=== PATIENT | male | born 1930 | race Caucasian/White ===

== ENCOUNTER 2019-06-23 12:01 | Observation (INO) | payer MEDICARE ==
[~2019-06-23] VITALS: Ht 172.7 cm; Wt 77.4 kg
[~2019-06-23 12:01] MED LIST: ASPI325 PO; CLOP75 PO; ENOX120I SC; ENOX30I SC; FLUO.1OPSU BOTHEYES; LATA.005SO BOTHEYES; LEVSOD88 PO; LISI10 PO; LISI20 PO; MECL25 PO; RXONDA4ODT MM; Synthroid75 MCG PO; WARF5 PO
[2019-06-23 12:24] LABS: Hematocrit 37.3 % (37.0-53.0); Hemoglobin 12.2 g/dL (13.5-17.5); Mean Corpuscular HGB 35.8 pg (26.0-34.0); Mean Corpuscular HGB Conc 32.7 g/dL (31.5-36.5); Mean Corpuscular Volume 109 fL (80-100); Mean Platelet Volume 9.1 fL (9.1-12.4); Platelet Count 118 K/mm3 (150-400); RDW Coefficient Variation 14.2 % (11.7-14.2); RDW Standard Deviation 57.7 fL (35.1-46.3); Red Blood Cell Count 3.41 M/mm3 (4.30-5.90); White Blood Cell Count 3.06 K/mm3 (4.00-11.30)
[2019-06-23 12:39] LABS: International Normalized Ratio 3.79; Prothrombin Time Results 35.6 Sec (9.7-11.5)
[2019-06-23 12:47] LABS: Alanine Aminotransfer (ALT/SGP 22 U/L (12-78); Albumin, Blood 3.1 g/dL (3.4-5.0); Albumin/Globulin Ratio 0.9 (0.8-1.8); Alk Phos 63 U/L (50-136); Anion Gap 8 mmol/L (6-16); Aspartate Aminotrans (AST/SGOT 23 U/L (12-37); Bilirubin, Total 0.9 mg/dL (0.1-1.0); Blood Urea Nitrogen 21 mg/dL (8-24); CO2, Blood 25 mmol/L (21-32); CPK Creatine Kinase 105 U/L (39-308); Calcium, Blood 8.9 mg/dL (8.5-10.1); Chloride, Blood 109 mmol/L (98-108); Creatinine, Blood 1.31 mg/dL (0.60-1.20); Globulin, Blood 3.3 g/dL (2.2-4.0); Glomerular Filtration Rate 55 (60-); Glucose, Blood 158 mg/dL (70-99); Potassium, Blood 3.9 mmol/L (3.5-5.5); Sodium, Blood 142 mmol/L (136-145); Total Protein, Blood 6.4 g/dL (6.4-8.2); Troponin I <0.015 ng/mL (0.000-0.040)
[2019-06-23 12:53] LABS: BAND PERCENT MAN 2 % (0-8); BASOPHILS PERCENT MAN 0 % (0-2); EOSINOPHILS PERCENT MAN 0 % (0-6); LYMPHOCYTES ABSOLUTE MAN 2.35 K/mm3 (0.84-5.20); LYMPHOCYTES PERCENT MAN 77 % (21-46); MONOCYTES ABSOLUTE MAN 0.03 K/mm3 (0.16-1.47); MONOCYTES PERCENT MAN 1 % (4-13); NEUTROPHILS ABSOLUTE MAN 0.67 K/mm3 (1.96-9.15); SEG NEUTROPHILS PERCENT MAN 20 % (41-73); TOTAL CELLS COUNTED 100
[2019-06-23] MEDS ORDERED: WARF5 PO (13:17)
[2019-06-23 14:41] LABS: Source, Urine Clean Catch
[2019-06-23 15:07] LABS: Bilirubin, Urine Neg (Neg); Blood, Urine 1+ (Neg); Glucose Qualitative, Urine Neg (Neg); Ketones, Urine 2+ (Neg); Leukocyte Esterase, Urine Neg (Neg); Nitrite, Urine Neg (Neg); Protein, Urine 1+ (Neg); Urobilinogen, Urine 2+ (Normal)
[2019-06-23 15:25] LABS: Appearance, Urine Clear (Clear); Color, Urine Yellow (P-Yellow)
[2019-06-23 15:27] LABS: Bacteria Few /hpf; Squamous Epithelial Cells Not Seen /hpf (Few); White Blood Cells, Urine 0-2 /hpf (0-5)
[2019-06-24 04:52] LABS: Hematocrit 34.2 % (37.0-53.0); Hemoglobin 11.2 g/dL (13.5-17.5); Mean Corpuscular HGB 34.7 pg (26.0-34.0); Mean Corpuscular HGB Conc 32.7 g/dL (31.5-36.5); Platelet Count 103 K/mm3 (150-400); RDW Coefficient Variation 14.1 % (11.7-14.2); Red Blood Cell Count 3.23 M/mm3 (4.30-5.90); White Blood Cell Count 2.23 K/mm3 (4.00-11.30)
[2019-06-24 04:53] LABS: Mean Corpuscular Volume 106 fL (80-100)
[2019-06-24 05:07] LABS: International Normalized Ratio 3.85; Prothrombin Time Results 36.1 Sec (9.7-11.5)
[2019-06-24 05:08] LABS: Anion Gap 7 mmol/L (6-16); Blood Urea Nitrogen 17 mg/dL (8-24); Bun/Creatinine Ratio 14.8 (12.0-20.0); CO2, Blood 27 mmol/L (21-32); Calcium, Blood 8.5 mg/dL (8.5-10.1); Chloride, Blood 110 mmol/L (98-108); Creatinine, Blood 1.15 mg/dL (0.60-1.20); Glomerular Filtration Rate >60 (60-); Glucose, Blood 93 mg/dL (70-99); Potassium, Blood 3.6 mmol/L (3.5-5.5); Sodium, Blood 144 mmol/L (136-145)
--- NOTE | 2019-06-24 06:46 | NUR ---
SHIFT SUMMARY PT WAS A NEW ADMIT DURING THE NIGHT, ARRIVING ON THE FLOOR AT 2024. HE IS A&O X 3. PT WAS ADMITTED FOR WEAKNESS AFTER "MY LEGS GAVE OUT ON ME" WHILE HE WAS AT HOME. PT STILL REPORTS HE IS UNABLE TO AMBULATE, AND DOES NOT THINK HE CAN CARE FOR HIMSELF AT HOME WHILE HE IS WEAK. HE DENIED ANY COMPLAINTS OF ACUTE PAIN, NAUSEA OR SOB. HE RECEIVED CONTINUOUS FLUIDS DURING THE NIGHT, NS @ 100 ML/HR. PT IS ON CONTINUOUS O2 AT 2L VIA NC. VITALS WERE STABLE. NO OTHER ACUTE CHANGES IN PT CONDITION NOTED. WILL CONTINUE TO MONITOR AND TREAT PER EMAR UNTIL HAND OFF TO DAY SHIFT.
--- NOTE | 2019-06-24 14:54 | NUR ---
[facility] visit: Mr. Campbell was alone in room and was not open to conversation. He did, however, want me to pray for his. When asked what he'd like me to pray for, he shrugged and said, "whatever." Provided prayer at bedside and will remain available.
--- NOTE | 2019-06-24 19:54 | NUR ---
SUMMARY PT IS A/O X4, PLEASANT AFFECT. STATE NO PAIN/DISCOMFORT TODAY. STATE CONTINUING WEAKNESS BLE, STATE UNABLE TO AMBULATE. HE HAS BEEN ABLE TO STAND, PIVOT, TO GET TO CHAIR FOR BRIEF PERIODS THEN BACK TO BED, 1 ASSIST w GB. HE HAD PT/OT EVAL THIS AM. ST EVAL, DIET CHANGED TO [facility] SOFT D/T DENTITION. VSS.
[2019-06-25 04:59] LABS: BASOPHILS ABSOLUTE AUTO 0.01 K/mm3 (0.00-0.23); BASOPHILS PERCENT AUTO 0 % (0-2); EOSINOPHILS ABSOLUTE AUTO 0.07 K/mm3 (0.00-0.68); EOSINOPHILS PERCENT AUTO 3 % (0-6); Hematocrit 34.4 % (37.0-53.0); Hemoglobin 11.2 g/dL (13.5-17.5); Mean Corpuscular HGB 34.6 pg (26.0-34.0); Mean Corpuscular HGB Conc 32.6 g/dL (31.5-36.5); Mean Corpuscular Volume 106 fL (80-100); Mean Platelet Volume 9.2 fL (9.1-12.4); Platelet Count 106 K/mm3 (150-400); RDW Coefficient Variation 14.3 % (11.7-14.2); RDW Standard Deviation 55.6 fL (35.1-46.3); Red Blood Cell Count 3.24 M/mm3 (4.30-5.90); White Blood Cell Count 2.64 K/mm3 (4.00-11.30)
[2019-06-25 05:02] LABS: IMMATURE GRAN ABSOLUTE AUTO 0.01 K/mm3 (0.00-0.10); IMMATURE GRAN PERCENT AUTO 0 % (0-1); LYMPHOCYTES PERCENT AUTO 64 % (21-46); MONOCYTES ABSOLUTE AUTO 0.05 K/mm3 (0.16-1.47); MONOCYTES PERCENT AUTO 2 % (4-13); NEUTROPHILS PERCENT AUTO 30 % (41-73)
[2019-06-25 05:12] LABS: International Normalized Ratio 3.62; Prothrombin Time Results 34.1 Sec (9.7-11.5)
--- NOTE | 2019-06-25 06:37 | NUR ---
SHIFT SUMMARY PT IS AN 89 Y/O MALE, ADMITTED WITH WEAKNESS. HE IS A&O X 3 AT BASELINE, THOUGH HE HAD AN EPISODE OF AMS AND CONFUSION WHERE THE PT WAS A&O X SELF ONLY, IN THE EARLY AM WHICH APPEARED TO RESOLVE WITHIN AN HOUR LATER. NO COMPLAINTS OF PAIN, NAUSEA OR SOB DURING THE NIGHT. VITALS WERE STABLE. NO OTHER ACUTE CHANGES IN PT CONDITION NOTED. WILL CONTINUE TO MONITOR AND TREAT PER EMAR UNTIL HAND OFF TO DAY SHIFT RN.
[2019-06-25 11:49] LABS: Percent Saturation 21.4 % (20.0-50.0)
--- NOTE | 2019-06-25 18:03 | NUR ---
SHIFT SUMMARY PT AXO X4, FORGETFUL AND CONFUSED AT TIMES. PT UPSET WITH NURSE ENCOURAGING HIM OOB TO CHAIR. PT WAS ABLE TO LIFT LEGS UPON START OF SHIFT BUT THEN AFTER SITTING UP IN CHAIR FOR ABOUT AN HOUR PT STATES HE IS TOO WEAK TO STAND. VSS. NO IV ACCESS AT THIS TIME. BED IN LOW POSITION, CALL LIGHT WITHIN REACH, BED ALARM ON. NO OTHER CHANGES THIS SHIFT. PT DENIES PAIN, SOB AND NV
[2019-06-26 04:39] LABS: BASOPHILS ABSOLUTE AUTO 0.01 K/mm3 (0.00-0.23); BASOPHILS PERCENT AUTO 0 % (0-2); EOSINOPHILS ABSOLUTE AUTO 0.08 K/mm3 (0.00-0.68); EOSINOPHILS PERCENT AUTO 3 % (0-6); Hemoglobin 11.2 g/dL (13.5-17.5); IMMATURE GRAN ABSOLUTE AUTO 0.01 K/mm3 (0.00-0.10); IMMATURE GRAN PERCENT AUTO 0 % (0-1); LYMPHOCYTES PERCENT AUTO 66 % (21-46); MONOCYTES ABSOLUTE AUTO 0.17 K/mm3 (0.16-1.47); MONOCYTES PERCENT AUTO 5 % (4-13); Mean Corpuscular HGB 34.9 pg (26.0-34.0); Mean Corpuscular HGB Conc 32.9 g/dL (31.5-36.5); Mean Corpuscular Volume 106 fL (80-100); Mean Platelet Volume 9.2 fL (9.1-12.4); NEUTROPHILS PERCENT AUTO 25 % (41-73); Platelet Count 104 K/mm3 (150-400); RDW Coefficient Variation 14.2 % (11.7-14.2); RDW Standard Deviation 55.4 fL (35.1-46.3); Red Blood Cell Count 3.21 M/mm3 (4.30-5.90); White Blood Cell Count 3.17 K/mm3 (4.00-11.30)
[2019-06-26 04:53] LABS: International Normalized Ratio 2.14; Prothrombin Time Results 21.2 Sec (9.7-11.5)
--- NOTE | 2019-06-26 07:18 | NUR ---
NO ACUTE CHANGES TO REPORT THIS SHIFT. PATIENT WAS CALM AND COOPERATIVE WITH CARE. PASSES REPORT TO DAY NURSE.
--- NOTE | 2019-06-26 18:38 | NUR ---
NO ACUTE CHANGES NOTED, PT DID WORK WITH PT TWICE TODAY, WALKED AROUND BED WITH PHYSICAL THERAPIST, DOING BETTER. NO REPORTS OF PAIN OR N/V, WILL CONTINUE TO MONITOR AND REPORT TO ONCOMING RN
--- NOTE | 2019-06-27 00:31 | NUR ---
06/26/191999 PT REQUIRED TWO PERSON STANDBY ASSIST TO TRANSFER, PIVOT ONTO BSC WITH MUCH DIFFICULTY, PT HAD DIFFICULTY COMING TO STANDING POSITION, LARGE BROWN BM NOTED.
--- NOTE | 2019-06-27 04:54 | NUR ---
SHIFT SUMMARY: 89 Y/O MALE RESTED COMFORTABLY ALL SHIFT, LARGE BROWN BM X 1 THIS SHIFT (FIRST BM IN 10 DAYS PER PATIENT), DENIES PAIN OR NAUSEA, HAD MUCH DIFFICULTY TRANSFERRING, STANDING AND PIVOTING TO [facility] [place]IST (UNABLE TO AMBULATE ANY DISTANCE DUE DECONDITIONING AT THIS TIME), BED ALARM APPLIED, BED LOW POSITION, CALL LIGHT AT SIDE.
--- NOTE | 2019-06-27 18:46 | NUR ---
NO REPORTS OF PAIN TODAY, DECLINED TO GET OOB TO CHAIR TODAY, EATING AND TOLERATING MEALS. USING URINAL INDEPENDENTLY. NO ACUTE CHANGES NOTED THIS SHIFT
--- NOTE | 2019-06-27 23:17 | NUR ---
2030 PT GIVEN COMPLETE BED BATH AND LINEN CHANGE BY NIGHT SINKER PULLER'S, PT VOICED HE IS UNABLE TO CARE FOR SELF AT HOME AT THIS TIME, PT DECLIND SIT IN CHAIR THIS SHIFT, PT DURING BATH WHILE TURNING TO LEFT ALL SUDDEN SCREAMED LOUDLY AND SAID, "I REMEMBER BEING IN A CONCENTRATION CAMP IN [facility] AND SOMETHING REMINDED ME OF THAT TIME DURING MY LIFE". NURSING STAFF WAS ABLE TO REDIRECT AND CALM PATIENT DOWN WITH CALM VOICE AND REASSURANCE.
--- NOTE | 2019-06-28 04:32 | NUR ---
SHIFT SUMMARY: 89 Y/O MALE RESTED COMFORTABLY ALL SHIFT WITH NO PAIN OR NAUSEA, PT VERY DECONDITIONED AND REQUIRES ASSISTANCE WITH ALL ADLS HE UNABLE TO PERFORM THESE TASKS (PT GIVEN COMPLETE BED BATH X 2 ASSIST LAST NIGHT AND REQUIRED ASSISTANCE FROM STAFF WITH ROLLING BACK AND FORTH), PT PROVIDED VERY MINIMAL ASSISTANCE, BED ALARM APPLIED, BED LOW POSITION, CALL LIGHT AT SIDE.
--- NOTE | 2019-06-28 18:26 | NUR ---
SHIFT SUMMARY AL DENIED PAIN THIS SHIFT. DECLINED GETTING OOB TO CHAIR FOR MEALS BUT CONSENTED TO WALKING WITH PT AND WITH SKIN CARE TECHNICIAN THIS EVENING. 1 PERSON ASSIST. PT STATES HE IS OK WITH MEDICAID OR [facility] HELP FOR PLACEMENT, CM AWARE. SLIGHT TEMP EARLIER, BUT REFUSES TYLENOL. USING URINAL APPROPRIATELY. TOOK MEDS PRESCRIBED, CALL LIGHT IN REACH, [facility]
--- NOTE | 2019-06-29 05:46 | NUR ---
SHIFT SUMMARY: ADEEL HAS BEEN PLEASANT THROUGHOUT THE SHIFT. HE HAD NO COMPLAINTS OR CONCERNS THIS SHIFT. MEDS WERE GIVEN PER EMAR. HE DENIED ANY PAIN OR DISCOMFORT WELL. HE SLEPT WELL THROUGHOUT THE NIGHT, NO ACUTE CHANGES OCCURRED THIS SHIFT. WILL REPORT TO DAY SHIFT RN
--- NOTE | 2019-06-29 10:28 | NUR ---
PATIENT REFUSING SHOWER AT THIS TIME, REFUSING AMBULATION, AND SITTING IN A CHAIR. WILL TRY AGAIN LATER.
[2019-06-29] MEDS ORDERED: DOCU100 PO (11:22)
[2019-06-29] MEDS ORDERED: MIRALAX17 GM PO (11:22)
[2019-06-29] MEDS ORDERED: SENN187 PO (11:23)
--- NOTE | 2019-06-29 17:50 | NUR ---
PATIENT DISCHARGED WITH SON. AFTER DISCHARGE, DISCHARGE PLANNING STATED NO HOME HEALTH AT THIS TIME. ENCOURAGED PATIENT TO RETURN TO ED IF SYMPTOMS WORSEN AND HE BECAME MORE WEAK. PATIENT STATES HE IS EAGER TO GET HOME AND GET BACK TO HIS ROUTINES.
== END 2019-06-29 17:02 | disposition home or self-care (01) ==
LOC: ER 12:01 → MEDS 12:02
PROVIDERS: Emergency Medicine; Family Medicine; Nurse Practitioner Acute Care; ADMIT Internal Medicine
DX: R53.1 Weakness (principal); R29.6 Repeated falls; R26.89 Other abnormalities of gait and mobility; D61.818 Other pancytopenia; I12.9 Hypertensive chronic kidney disease with stage 1 through stage 4 chronic kidney disease, or unspecified chronic kidney disease; N18.3 Chronic kidney disease, stage 3 (moderate); N17.9 Acute kidney failure, unspecified; R13.10 Dysphagia, unspecified; J44.9 Chronic obstructive pulmonary disease, unspecified; J96.11 Chronic respiratory failure with hypoxia; E44.1 Mild protein-calorie malnutrition; H40.9 Unspecified glaucoma; E03.9 Hypothyroidism, unspecified; K59.09 Other constipation; Z99.81 Dependence on supplemental oxygen; Z86.73 Personal history of transient ischemic attack (TIA), and cerebral infarction without residual deficits; Z86.718 Personal history of other venous thrombosis and embolism; Z79.82 Long term (current) use of aspirin; Z79.899 Other long term (current) drug therapy
CPT/HCPCS: 36415; 51701; 70450; 71045; 73590; 74176; 80048; 80053; 81001; 82550; 82607; 82728; 82746; 83540; 83550; 84443; 84484; 85025; 85027; 85610; 92610; 93005; 93010; 96360; 96361; 97110; 97116; 97162; 97166; 97530; 97535; 99285-25; G0378; J7030

== ENCOUNTER 2019-11-29 15:42 | Inpatient (IN) | payer MEDICARE ==
[~2019-11-29] VITALS: Ht 177.8 cm; Wt 72.6 kg
[~2019-11-29 15:42] MED LIST changes: +DOCU100 PO; +LEVSOD75 PO; +MIRALAX17 GM PO; +SENN187 PO; -Synthroid75 MCG PO
[2019-11-29 16:53] LABS: BASOPHILS PERCENT AUTO 0 % (0-2); EOSINOPHILS ABSOLUTE AUTO 0.02 K/mm3 (0.00-0.68); EOSINOPHILS PERCENT AUTO 1 % (0-6); Hemoglobin 12.3 g/dL (13.5-17.5); IMMATURE GRAN PERCENT AUTO 0 % (0-1); LYMPHOCYTES ABSOLUTE AUTO 1.58 K/mm3 (0.84-5.20); LYMPHOCYTES PERCENT AUTO 68 % (21-46); MONOCYTES ABSOLUTE AUTO 0.03 K/mm3 (0.16-1.47); MONOCYTES PERCENT AUTO 1 % (4-13); Mean Corpuscular HGB 36.7 pg (26.0-34.0); Mean Corpuscular HGB Conc 32.4 g/dL (31.5-36.5); Mean Corpuscular Volume 113 fL (80-100); Mean Platelet Volume 9.4 fL (9.1-12.4); NEUTROPHILS ABSOLUTE AUTO 0.69 K/mm3 (1.96-9.15); NEUTROPHILS PERCENT AUTO 30 % (41-73); Platelet Count 130 K/mm3 (150-400); RDW Coefficient Variation 13.8 % (11.7-14.2); RDW Standard Deviation 58.4 fL (35.1-46.3); Red Blood Cell Count 3.35 M/mm3 (4.30-5.90); White Blood Cell Count 2.32 K/mm3 (4.00-11.30)
[2019-11-29 17:15] LABS: Alanine Aminotransfer (ALT/SGP 15 U/L (12-78); Albumin, Blood 3.5 g/dL (3.4-5.0); Alk Phos 70 U/L (50-136); Anion Gap 6 mmol/L (6-16); Aspartate Aminotrans (AST/SGOT 10 U/L (12-37); Bilirubin, Total 0.9 mg/dL (0.1-1.0); Blood Urea Nitrogen 26 mg/dL (8-24); Bun/Creatinine Ratio 22.6 (12.0-20.0); CO2, Blood 26 mmol/L (21-32); Calcium, Blood 9.4 mg/dL (8.5-10.1); Chloride, Blood 105 mmol/L (98-108); Creatinine, Blood 1.15 mg/dL (0.60-1.20); Globulin, Blood 3.5 g/dL (2.2-4.0); Glomerular Filtration Rate >60 (60-); Glucose, Blood 133 mg/dL (70-99); Sodium, Blood 137 mmol/L (136-145)
[2019-11-29] MEDS ORDERED: ASPI325 PO (18:32)
[2019-11-29 19:09] LABS: Source, Urine Clean Catch
[2019-11-29 19:16] LABS: Appearance, Urine Clear (Clear); Bilirubin, Urine Neg (Neg); Blood, Urine 1+ (Neg); Color, Urine Yellow (P-Yellow); Glucose Qualitative, Urine Neg (Neg); Ketones, Urine Neg (Neg); Leukocyte Esterase, Urine Neg (Neg); Nitrite, Urine Neg (Neg); Protein, Urine 1+ (Neg); Urobilinogen, Urine NORM (Normal)
[2019-11-29 19:23] LABS: Bacteria Few /hpf; Squamous Epithelial Cells Not Seen /hpf (Few); White Blood Cells, Urine 0-2 /hpf (0-5)
[2019-11-29 20:31] LABS: International Normalized Ratio 1.04; Prothrombin Time Results 11.1 Sec (9.7-11.5)
--- NOTE | 2019-11-29 22:20 | NUR ---
PATIENT BEING ADMITTED FOR WEAKNESS TO BLE AND SYNCOPE. PATIENT IS AOX3 ARRIVED VIA GURNEY. TRANSFERRED USING SLIDER SHEET TO BED. PATIENT REPORTS HE DID NOT HAVE A SYNCOPE MOMENT. HE IN FACT STOOD UP FROM HIS CHAIR WHEN HIS LEGS GAVE OUT ON HIM CAUSING HIM TO FALL BACK INTO HIS CHAIR. HE HAS BEEN HAVING INCREASE IN NUMBNESS TO HIS FEET AND PAIN IN THE LEFT EDWARDS FOR THE PAST SEVERAL WEEKS. THIS IN TURN IS CAUSING HIM TO GET WEEK AND CAUSE HIS LEGS TO GO NUMB AND BUCKLE. SON TAKES CARE OF HIM WHEN HE CAN WHICH IS TYPICALLY TWICE A WEEK. PATIENT DOES LIVE ALONE AND HAS PROGRESSIVELY BECOME IN ABLE TO CARE FOR HIMSELF. SON IS WANTING GRINDER SET UP OPERATOR GEAR TOOL PLACEMENT FOR HIM. 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 STATES IT HAS BEEN A WHILE SINCE HE HAS BEEN CHECKED OUT. SETTLED HIM INTO THE ROOM, IV IS RUNNING AT 400ML/HR. CALL LIGHT GIVEN.
[2019-11-29] MEDS ORDERED: OCUVITE ADULT1 EAC1 PO (22:54)
--- NOTE | 2019-11-30 05:52 | NUR ---
SHIFT SUMMARY: ADEEL WAS ADMITTED LAST NIGHT FOR WEAKNESS AND NUMBNESS TO HANDS AND LEGS. HIS LEGS HAVE BEEN GETTING PROGRESSIVELY WORSE OVER THE LAST FEW WEEKS WITH INCREASE OF THEM GOING NUMB AND BUCKLING OUT FROM UNDERNEATH HIM. SINCE HE ARRIVED TO THE FLOOR HE HAS REPORTED NUMBNESS TO HIS FEET AND HANDS. PAIN TO THE LEFT SHIFT. NO REDNESS NOTED TO BLE. VS HAVE REMAINED STABLE. IV FLUIDS HAVE REMAINED INFUSING AT 100ML/HR. HE HAS DENIED NEED FOR PAIN MEDS OR ANY OTHER NEEDS. HE HAS BEEN BEDREST SINCE ARRIVAL AND SLEPT GOOD THROUGHOUT THE NIGHT. CALL LIGHT HAS REMAINED IN REACH AND USED APPROPRIATLY.
--- NOTE | 2019-11-30 17:11 | NUR ---
PT HAS NO ACUTE CHANGES THIS SHIFT. PT WAS UNABLE TO TOLORATE PT AND OT DUE TO DISCOMFORT WHEN BEING TOUCHED ON HANDS OR FEET. PT HAS A LIDOCAINE PATCH IN PLACE ON RIGHT CALF. PT TOLORATES FOOD WELL. PT HAS BED ALARM ON AND CALL LIGHT WITH IN REACH WILL COUNTINUE TO MONITOR AND REPORT TO ONCOMING NOC RN.
--- NOTE | 2019-12-01 05:53 | NUR ---
SHIFT SUMMARY ADMITTED FOR TRANSIENT WEAKNESS OF LOWER EXTREMETY. DNR CODE. WOUND INSIDE LEFT BUTTOCK COVERED IN MEPILEX. 1 STANDBY DUE TO PERIODS OF CONFUSION. RA, A&O X3, CARDIAC DIET. 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 HX: TIA X2, CVA, CKD, HTN, HYPERLIPIDEMIA, HYPOTHYROID.
--- NOTE | 2019-12-01 12:35 | NUR ---
Permission given on 11/30/2019 by patient to let Susana PATEL assist with care.
--- NOTE | 2019-12-01 18:17 | NUR ---
SHIFT SUMMARY PT AXO THOUGH FORGETFUL AND CONFUSED AT TIMES. REFUSED LOVENOX. PT WORKED WITH PHYSICAL THERAPY AND OCCUPATIONAL THERAPY, SEE NOTE. PT UP TO CHAIR FOR LUNCH. NO ACUTE CHANGES THIS SHIFT. PT DENIES PAIN, SOB AND NV. BED IN LOW POSITION, CALL LIGHT WITHIN REACH.
--- NOTE | 2019-12-02 05:04 | NUR ---
SHIFT SUMMARY ADMITTED FOR TRANSIENT WEAKNESS OF LOWER EXTREMETY. DNR CODE. AWAITING PLACEMENT WITH HELP FROM [employer]ARD[employer] IMPLEMENT MECHANIC AND CARE MANAGEMENT. PT IS A&O X4 (WITH PERIODS OF CONFUSION), RA, 1 STANDBY W/FWW, CARDIAC DIET. WOUND INSIDE RT BUTTOCK, SEE PHOTO IN EMAR. RT LEG WEAKNESS, BUE NUMBNESS. DENIES PAIN THIS SHIFT. PT HAS NO ONE TO ASSIST WITH HIS CARE AT HOME. FAMILY IS ONLY AVAILABLE ONE DAY PER WEEK. PT NEEDS HELP WITH BATHING, MEAL PREPARATION, OTHER ADL'S. HX: TIA X2, CVA, CKD, HTN, HYPERLIPIDEMIA, HYPOTHYROID.
--- NOTE | 2019-12-02 18:12 | NUR ---
PT AOX3 SOMETIMES 4. PT WILL SEEM VERY OREINTED AT ONE MOMENT THEN FORGET COMPLETELY ABOUT SOMETHING JUST TALKED ABOUT. PT WAS LIKE THIS ALL DAY. PLEASANT TO CARE FOR AND HAS NOT BEEN IMPULSIVE AT THIS TIME. PT HAD BED ALARM IN PLACE AND CHAIR ALARM WHEN UP. PT WORKED WELL WITH PHYSICAL THERAPY AND WAS A ONE PERSON WITH GAIT BELT. DENIED ANY PAIN AT THIS TIME. WILL CONTINUE TO MONITOR.
[2019-12-03 05:28] LABS: Hemoglobin 10.4 g/dL (13.5-17.5); Mean Corpuscular HGB 36.9 pg (26.0-34.0); Mean Corpuscular HGB Conc 32.5 g/dL (31.5-36.5); Mean Corpuscular Volume 114 fL (80-100); Mean Platelet Volume 9.2 fL (9.1-12.4); Platelet Count 108 K/mm3 (150-400); RDW Coefficient Variation 14.2 % (11.7-14.2); RDW Standard Deviation 59.4 fL (35.1-46.3); Red Blood Cell Count 2.82 M/mm3 (4.30-5.90); White Blood Cell Count 2.22 K/mm3 (4.00-11.30)
[2019-12-03 05:54] LABS: Alanine Aminotransfer (ALT/SGP 18 U/L (12-78); Albumin, Blood 2.9 g/dL (3.4-5.0); Alk Phos 51 U/L (50-136); Anion Gap 4 mmol/L (6-16); Aspartate Aminotrans (AST/SGOT 16 U/L (12-37); Bilirubin, Total 0.7 mg/dL (0.1-1.0); Blood Urea Nitrogen 21 mg/dL (8-24); Bun/Creatinine Ratio 18.9 (12.0-20.0); CHOL/HDL RATIO 3.7; CO2, Blood 28 mmol/L (21-32); Chloride, Blood 110 mmol/L (98-108); Cholesterol 159 mg/dL (50-200); Creatinine, Blood 1.11 mg/dL (0.60-1.20); Globulin, Blood 2.9 g/dL (2.2-4.0); Glomerular Filtration Rate >60 (60-); Glucose, Blood 86 mg/dL (70-99); HDL Cholesterol 43 mg/dL (>39); LDL/HDL RATIO 1.9; Low Density Lipoprotein Chol 80 mg/dL (0-110); Potassium, Blood 4.2 mmol/L (3.5-5.5); Sodium, Blood 142 mmol/L (136-145); Total Protein, Blood 5.8 g/dL (6.4-8.2); Triglycerides 180 mg/dL (30-160); Very Low Density Lipoprot Chol 36 mg/dL (6-32)
[2019-12-03 06:09] LABS: BASOPHILS ABSOLUTE MAN 0.02 K/mm3 (0.00-0.23); BASOPHILS PERCENT MAN 1 % (0-2); EOSINOPHILS ABSOLUTE MAN 0.06 K/mm3 (0.00-0.68); EOSINOPHILS PERCENT MAN 3 % (0-6); LYMPHOCYTES % ATYPICAL MANUAL 5 % (0-0); LYMPHOCYTES ABSOLUTE MAN 1.42 K/mm3 (0.84-5.20); LYMPHOCYTES PERCENT MAN 59 % (21-46); MONOCYTES ABSOLUTE MAN 0.04 K/mm3 (0.16-1.47); MONOCYTES PERCENT MAN 2 % (4-13); NEUTROPHILS ABSOLUTE MAN 0.66 K/mm3 (1.96-9.15); SEG NEUTROPHILS PERCENT MAN 30 % (41-73); TOTAL CELLS COUNTED 100
--- NOTE | 2019-12-03 07:50 | NUR ---
12/03/19 0615 PT ALERT X 4 LAST NIGHT. HARD OF HEARING BUT USES CALL SYSTEM TO GET HELP. DENIES ANY DISCOMFORT OR S/S. TURNED Q 2 HOURS WHEN HE WOULD LET STAFF. VOIDING QS. VITALS REMAINS STABLE.
--- NOTE | 2019-12-03 17:18 | NUR ---
PT AOX3 WITH CONFUSION. PT HAS BEEN COOPERATIVE OF CARE AND CALLS APPROPRIATELY. PT 1 PERSON WITH WALKER AND USES URININAL WHEN IN BED. PT DENIED ANY PAIN TODAY AND SEEMS TO BE IN GOOD SPIRITS AT THIS TIME. WILL CONTINUE TO MONITOR.
[2019-12-04 04:45] LABS: Hematocrit 30.9 % (37.0-53.0); Hemoglobin 10.1 g/dL (13.5-17.5); Mean Corpuscular HGB 37.1 pg (26.0-34.0); Mean Corpuscular HGB Conc 32.7 g/dL (31.5-36.5); Mean Corpuscular Volume 114 fL (80-100); Mean Platelet Volume 9.4 fL (9.1-12.4); Platelet Count 110 K/mm3 (150-400); RDW Coefficient Variation 14.3 % (11.7-14.2); RDW Standard Deviation 59.5 fL (35.1-46.3); Red Blood Cell Count 2.72 M/mm3 (4.30-5.90); White Blood Cell Count 2.67 K/mm3 (4.00-11.30)
[2019-12-04 05:00] LABS: Albumin, Blood 2.9 g/dL (3.4-5.0); Anion Gap 4 mmol/L (6-16); Blood Urea Nitrogen 20 mg/dL (8-24); Bun/Creatinine Ratio 17.1 (12.0-20.0); CO2, Blood 28 mmol/L (21-32); Chloride, Blood 108 mmol/L (98-108); Creatinine, Blood 1.17 mg/dL (0.60-1.20); Glomerular Filtration Rate >60 (60-); Glucose, Blood 89 mg/dL (70-99); Phosphorus, Blood 2.8 mg/dL (2.5-4.9); Potassium, Blood 4.4 mmol/L (3.5-5.5); Sodium, Blood 140 mmol/L (136-145)
--- NOTE | 2019-12-04 05:39 | NUR ---
NO ACUTE CHANGES: PT WAS PLEASANT AND COOPERATIVE WITH CARE. BED LOW AND LOCKED, CALL AMAYA WITHIN REACH
[2019-12-04 06:08] LABS: HBSAG SCREEN Negative (Negative); HEP A AB, IGM Negative (Negative); HEP B CORE AB, IGM Negative (Negative); HEP C VIRUS AB <0.1 (0.0-0.9)
--- NOTE | 2019-12-04 18:50 | NUR ---
Shift Summary A/Ox3, pleasant and cooperative with care. Pt worked with physical therapy today. No other acute changes or concerns at this time.
--- NOTE | 2019-12-05 05:06 | NUR ---
SHIFT SUMMARY NO ACUTE CHANGES TO REPORT THIS SHIFT. PT HAS RESTED COMFORTABLY THIS SHIFT AND HAS NOT HAD ANY COMPLAINTS. HE HAS BEEN INDEPENDENT AT THE BEDSIDE AT CALLS APPROPRIATELY. ASSESSMENT HAS REMAINED UNCHANGED. BED IN LOWEST POSITION, CALL LIGHT WITHIN REACH. WILL CONTINUE TO MONITOR AND REPORT TO ONCOMING RN.
--- NOTE | 2019-12-05 19:19 | NUR ---
Shift Summary A/Ox3, cooperative with care. Patient had an uneventful day. Mepilex placed on coccyx for added protection. No other acute concerns.
--- NOTE | 2019-12-06 05:03 | NUR ---
SHIFT SUMMARY PT PLEASANT AND COOPERATIVE. ASKS FOR VERY LITTLE. DENIES PAIN. USES URINAL INDEPENDENTLY IN THE BED. PT REMAINED IN BED THIS EVENING. SLEPT WELL. NOTED THAT PT HAS NOT HAD A BM SINCE 12/02/19. PT REFUSED BOWEL CARE THIS EVENING AND STATED THAT HE WOULD TAKE IT DURING THE DAY. VERY SLIGHT RESIDUAL WEAKNESS FROM HX OF STROKE. PT ALSO HAS HX OF CHRONIC BACK PAIN, DENIED ANY BACK PAIN TONIGHT BUT REQUESTED SCHEDULED TYLENOL BEFORE BED. PT SLEEPING AT THIS TIME. NO ACUTE CHANGES THIS SHIFT. WILL CONTINUE TO MONITOR AND REPORT TO DAY RN.
--- NOTE | 2019-12-06 19:35 | NUR ---
SHIFT SUMMARY. A&OX3, PLEASANT AND COOPERATIVE, SBA WITH FWW AND GB, PT IS AWARE OF LIMITATIONS. PT REPORTS CHRONIC BACK PAIN, PT REFUSED APAP AND LIDOCAINE PATCH, HE REQUESTED TO ONLY RECIEVE APAP AT HS. PT REPOSITIONED FREQUENTLY. PT IS CONTINENT WITH URINAL. PT DENIES SOB, N/V. PT WORKED WITH PHYSICAL THERAPY AND TOLERATED WELL. NO NEW CHANGES OR CONCERNS.
--- NOTE | 2019-12-06 20:10 | NUR ---
ADEEL WAS WATCHING TV. DENIES ANY PAIN OR DISCOMFORT OTHER THEN THE CHRONIC PAIN IN HIS BACK. ONLY TAKES TYLENOL AT BEDTIME. STATES HE WALKED TODAY WITH PT AND WAS PROUD OF IT. STILL HAS NUMBNESS IN HIS LEGS, BUT STATES HE HAS NOT FELT LIKE THEY WILL BUCKLE UNDERNEATH HIM LATELY. DISCUSSED BOWEL CARE WITH HIM HE STATES HE CAN NOT TAKE MOM AND DOES NOT WANT ANY OTHER BOWEL CARE. STATES HE CAN GO UP TO 7 DAYS AT A TIME WITH NO BOWEL MOVEMENT WHICH IS NORMAL FOR HIM. ENCOURAGED HIM TO DRINK FLUIDS AND TAKE SOMETHING TOMORROW. WILL PASS ON. CALL LIGHT IN REACH.
--- NOTE | 2019-12-07 05:11 | NUR ---
SHIFT SUMMARY: ADEEL HAD A GOOD NIGHT. HE SLEPT THROUGHOUT THE SHIFT, ONLY AWAKENING TO USE THE BATHROOM AND INTERVENTIONS. VS HAVE BEEN STABLE. PAIN REMAINED AT TOLERABLE LEVEL. TYLNOL GIVEN X1 FOR PAIN. DENIED ANY OTHER NEEDS. NO ACUTE CHANGES, CALL LIGHT REMAINED IN REACH.
[2019-12-07 05:24] LABS: Hemoglobin 10.5 g/dL (13.5-17.5); Mean Corpuscular HGB 37.2 pg (26.0-34.0); Mean Corpuscular HGB Conc 32.8 g/dL (31.5-36.5); Mean Corpuscular Volume 114 fL (80-100); Mean Platelet Volume 9.4 fL (9.1-12.4); Platelet Count 118 K/mm3 (150-400); RDW Coefficient Variation 14.3 % (11.7-14.2); RDW Standard Deviation 59.4 fL (35.1-46.3); Red Blood Cell Count 2.82 M/mm3 (4.30-5.90); White Blood Cell Count 2.59 K/mm3 (4.00-11.30)
[2019-12-07 05:51] LABS: Anion Gap 6 mmol/L (6-16); Blood Urea Nitrogen 30 mg/dL (8-24); Bun/Creatinine Ratio 24.2 (12.0-20.0); CO2, Blood 27 mmol/L (21-32); Calcium, Blood 9.3 mg/dL (8.5-10.1); Chloride, Blood 107 mmol/L (98-108); Creatinine, Blood 1.24 mg/dL (0.60-1.20); Glomerular Filtration Rate 58 (60-); Glucose, Blood 89 mg/dL (70-99); Phosphorus, Blood 3.1 mg/dL (2.5-4.9); Potassium, Blood 4.4 mmol/L (3.5-5.5); Sodium, Blood 140 mmol/L (136-145)
--- NOTE | 2019-12-07 19:05 | NUR ---
ADEEL IS SITTING IN BED WATCHING MUSIC CHANNEL ON TV. STATES HE IS HOPING FOR PLACEMENT SOON. HE TALKED ALL ABOUT [facility] IT IS THE PLACE THEY ARE LOOKING FOR PLACEMENT. HE STATES HE KNOWS THE PEOPLE THAT OWN IT. HE IS HOPEFUL THE MOVE CAN HAPPEN SOON. DID WORK WITH PT TODAY AND SAID THAT HE HAD TROUBLE WITH HIS RIGHT LEG, HE PUSHED IT A LITTLE FAR SO IT IS VERY WEAK AT THIS MOMENT. ENCOURAGE HIM TO DO CIRCULATION EXERCISES IN BED TO HELP KEEP IT ACTIVE. BM NOTED TODAY. DENIES ANY OTHER CONCERNS. CALL LIGHT IN REACH.
--- NOTE | 2019-12-07 19:09 | NUR ---
SHIFT SUMMARY. A&OX3, PLEASANT AND COOPERATIVE, AWARE OF LIMIATIONS AND CALLS APPROPRIATELY. PT IS SBA TO BATHROOM WITH FWW AND GB, USES URINAL WHILE IN BED. PT HAD EXTRA LARGE FORMED BM THIS EVENING. PT REPORTS CHRONIC BACK PAIN THAT IS MANAGED WELL WITH SCHEDULED APAP, PT REFUSES LIDOCAINE PATCH. PT DENIES SOB, N/V. AWAITING PLACEMENT. NO NEW CHANGES OR CONCERNS.
--- NOTE | 2019-12-08 05:36 | NUR ---
SHIFT SUMMARY: ADEEL HAS HAD A GOOD NIGHT, SLEEPING OFF AND ON. VS HAVE REMAINED STABLE. REPORTED NO PAIN. TOOK MEDS WITH NO PROBLEMS. STILL AWAITING PLACEMENT [facility] AT [facility]. DC IV FOR NO USE. CALL LIGHT HAS REMAINED IN REACH AND USED APPROPRIATLY.
--- NOTE | 2019-12-08 18:26 | NUR ---
SUMMARY PT IS A/O X4, PLEASANT AFFECT. 1 ASSIST W FWW. HE WAS UP AMBULATE IN [place] TODAY. SENIOR SITE MANAGER ASSISTED HIM TO SHOWER, HE WAS ABLE TO DO MOST BY HIMSELF. HE STATE CONTINUING NUMBNESS IN HANDS & FEET, STATE R/T LAST CVA. STATE NO DIFFERENCE IN STREGNTH BETWEEN R & L. HE STATE NO PAIN/DISCOMFORT T/O DAY. VSS. DR HERNANDEZ STATE [facility] CONTINUE TO WORK ON ASSISTED LIVING PLACEMENT.
--- NOTE | 2019-12-09 05:41 | NUR ---
SHIFT SUMMARY PT IS AN 89 Y/O MALE, ADMITTED FOR TRANSIENT LE WEAKNESS, CURRENTLY AWAITING PLACEMENT. HE IS A&O X 4, AND A 1PA OUT OF BED. NO COMPLAINTS OF PAIN, NAUSEA OR SOB. PT SLEPT WELL DURING THE NIGHT. VITAL SIGNS STABLE. NO ACUTE CHANGES IN PT CONDITION NOTED. WILL CONTINUE TO MONITOR AND TREAT PER EMAR UNTIL HAND OFF TO DAY SHIFT RN.
--- NOTE | 2019-12-09 17:13 | NUR ---
summary PT IS A/OO X4, PLEASANT/COOPERATIVE T/O DAY. HE IS UP 1 ASSIST W FWW, AMBULATED IN HALLS TODAY W [facility]. HE STATE CONTINUING N/T HANDS & FEET. HE STATE CHR BACK PAIN, STATE TYLEOL ADEQUATE FOR PAIN RELIEF. HE PREFERS TO REST IN BED, DECLINES UP IN CHAIR FOR MEALS. GOOD APPETITE. NO BM TODAY, STATE NO CONSTIPATION PROBLEM, STATE NORMAL FOR HIM TO GO DAYS W/O BM. VSS. PLAN FOR HIM TO TRANSFER TO ASSISTED LIVING WHEN [facility] ABLE TO ARRANGE.
--- NOTE | 2019-12-10 05:40 | NUR ---
SHIFT SUMMARY PT IS AN 89 Y/O MALE, ADMITTED FOR TRANSIENT LOWER EXTREMITY WEAKNESS. HE IS A&O X 3, 1PA OUT OF BED. PT DENIED ANY COMPLAINTS OF PAIN, NAUSEA OR SOB. VITAL SIGNS STABLE. NO ACUTE CHANGES IN PT CONDITION NOTED. WILL CONTINUE TO MONITOR AND TREAT PER EMAR UNTIL HAND OFF TO DAY SHIFT RN.
--- NOTE | 2019-12-10 19:07 | NUR ---
SHIFT SUMMARY AL DENIED PAIN THIS SHIFT. HE WALKED WITH PT IN HALLWAY WITH WALKER, SBA. DECLINED GETTING OOB FOR MEAL. R BUTTOCK SORE HAS MEPILEX IN PLACE, ENCOURAGED MOVING AROUND. ALERT AND ORIENTED BUT FORGETFUL. TOOK MEDS ORDERED. USED URINAL APPROPRIATELY INDEPENDENTLY. CALL LIGHT IN REACH, [facility]
--- NOTE | 2019-12-11 04:50 | NUR ---
SHIFT SUMMARY ADMITTED FOR WEAKNESS OF LOWER EXTREMETY (POPLITEAL ANEURISM). LIMITED CODE (NO CPR, NO INTUBATION, MEDS OK). AWAITING PLACEMENT, [facility] IS POSSIBILITY EARLY NEXT WEEK. CARDIAC DIET, 1 ASSIST W/FWW AND GAITBELT. RA, NO IV ACCESS. HX: FALLS, CVA, CKD, CHRONIC RESPIRATORY FAILURE, HYPOTHYROID, TIA X2, HTN, CHRONIC BACK PAIN. THERE IS A SMALL PRESSURE ULCER ON RT. BUTTOCK.
--- NOTE | 2019-12-11 17:24 | NUR ---
PATIENT IS ALERT AND ORIENTED AND COOPERATIVE WITH CARE. HE CAN BE FORGETFUL. HE CALLS APPROPRIATELY. HE USES THE URINAL INDEPENDENTLY. 1PA WITH FWW AND GAITBELT. SITS UP IN BED FOR MEALS. WILL CONTINUE TO MONITOR.
--- NOTE | 2019-12-12 05:38 | NUR ---
SHIFT SUMMARY A/O, ABLE TO MAKE NEEDS KNOWN. COOPERATIVE WITH CARE. CALLS AND ANSWERS QUESTIONS APPROPRIATELY. NO C/O PAIN/DISCOMFORT. VSS/AFEBRILE. APPEARED TO REST MUCH OF SHIFT. NO ACUTE CHANGES NOTED OVERNIGHT. BED IN LOWEST POSITION. CALL LIGHT AND BELONGINGS WITHIN REACH. WCTM. REPORT TO ONCOMING RN.
--- NOTE | 2019-12-12 17:16 | NUR ---
PATIENT IS ALERT AND ORIENTED AND COOPERATIVE WITH CARE. PATIENT CALLS APPROPRIATELY. PATIENT SLEPT BETWEEN MEALS. NO FAMILY CAME TO VISIT TODAY. PATIENT USES THE URINAL INDEPENDENTLY. WILL CONTINUE TO MONITOR.
--- NOTE | 2019-12-13 04:49 | NUR ---
SHIFT SUMMARY A/O, ABLE TO MAKE NEEDS KNOWN. COOPERATIVE WITH CARE. CALLS AND ANSWERS QUESTIONS APPROPRIATELY. NO C/O PAIN/DISCOMFORT. APPEARED TO REST OFF AND ON OVERNIGHT. VSS/AFEBRILE. NO ACUTE CHANGES NOTED. BED REMAINS IN LOWEST POSITION. CALL LIGHT AND BELONGINGS WITHIN REACH. WCTM. REPORT TO ONCOMING RN.
[2019-12-13 12:21] LABS: Hematocrit 30.1 % (37.0-53.0); Mean Corpuscular HGB 37.6 pg (26.0-34.0); Mean Corpuscular HGB Conc 33.2 g/dL (31.5-36.5); Mean Corpuscular Volume 113 fL (80-100); Platelet Count 111 K/mm3 (150-400); RDW Coefficient Variation 14.2 % (11.7-14.2); Red Blood Cell Count 2.66 M/mm3 (4.30-5.90); White Blood Cell Count 2.25 K/mm3 (4.00-11.30)
[2019-12-13 12:35] LABS: Anion Gap 2 mmol/L (6-16); Blood Urea Nitrogen 33 mg/dL (8-24); Bun/Creatinine Ratio 31.1 (12.0-20.0); CO2, Blood 29 mmol/L (21-32); Calcium, Blood 8.9 mg/dL (8.5-10.1); Chloride, Blood 104 mmol/L (98-108); Creatinine, Blood 1.06 mg/dL (0.60-1.20); Glomerular Filtration Rate >60 (60-); Glucose, Blood 113 mg/dL (70-99); Potassium, Blood 4.4 mmol/L (3.5-5.5); Sodium, Blood 135 mmol/L (136-145)
--- NOTE | 2019-12-13 16:21 | NUR ---
SHIFT SUMMARY PT IS A/O X 3-4 WITH MOMENTS OF FORGETFULNESS. PT HAS WORKED WITH BOTH THERAPIES TODAY AND IS A STAND BY ASSIST WITH A FWW. PT CONTINUES TO WAIT FOR PLACEMENT AND IS WORKING WITH CASE MANAGEMENT. PT IS ABLE TO MAKE HIS NEEDS KNOWN AND CALLS FOR HELP WHEN NEEDED.
--- NOTE | 2019-12-14 05:50 | NUR ---
LATE ENTRY FOR 12/13 @ 1930, PT AND BELONGINGS MOVED FROM ROOM 313 TO ROOM 311.
--- NOTE | 2019-12-14 05:51 | NUR ---
SHIFT SUMMARY: VSS. AFEB. A/OX3. COMMUNICATES NEEDS. CONT WITH NUMBNESS OF B HANDS AND TOES PER PT BASELINE. NO R VS. L SIDED WEAKNESS APPARENT WITH INSPECTOR PENETRANT STRENGTH OR LE PUSHES/PULLS. PT REMAINED IN BED ALL NIGHT APPARENTLY SLEEPING. NO ACUTE CHANGES OVER NIGHT. BED LOW, CALL BUTTON IN REACH. WILL CONT TO MONITOR.
--- NOTE | 2019-12-15 05:10 | NUR ---
SHIFT SUMMARY NO ACUTE CHANGES. PT PLEASANT AND COOPERATIVE. CONTINUES TO HAVE WEAKNESS. REQUIRES ASSISTANCE WITH SITUATING IN THE BED. USES URINAL INDEPENDENTLY. SON AT BEDSIDE FOR START OF SHIFT. REQUESTED THAT NUCLEAR MEDICINE PHYSICIAN CONTACT HIM RELATED TO A THREE-WAY CALL THAT NEEDS TO HAPPEN BETWEEN APD, THE FAST FOOD ASSISTANT RESTAURANT MANAGER, AND THE SON? WILL PASS ON TO DAY RN. OTHERWISE, VITAL SIGNS STABLE. PT HAD UNEVENTFUL NIGHT.
--- NOTE | 2019-12-15 16:46 | NUR ---
SHIFT SUMMARY THE PATIENT HAS HAD AN UNEVENTFUL SHIFT. VITALS STABLE. DENIES PAIN AND DISCOMFORT, ALTHOUGH RECIEVES SCHEDULED TYLENOL. CALLS APPROPRIATELY FOR STAFF ASSIST. VERY COOPERATIVE AND PLEASANT. WILL CONTINUE TO MONITOR AND PROVIDE CARE NEEDED.
--- NOTE | 2019-12-15 21:15 | NUR ---
1914 REPORT RECEIVED FROM HARJINDER SHARIF. 2030 PT SON KAREN AT SIDE AND PROVIDED FILLED FORM FROM [facility] FOR CHART (THIS NURSE MADE COPY OF DOCUMENT AND PLACED ON CHART).
--- NOTE | 2019-12-16 04:27 | NUR ---
SHIFT SUMMARY: 89 Y/O MALE RESTED COMFORTABLY ALL SHIFT; DENIES PAIN OR NAUSEA; BED ALARM APPLIED, BED LOW POSITION WITH CALL LIGHT AT SIDE.
[2019-12-16 08:24] LABS: Hematocrit 30.9 % (37.0-53.0); Hemoglobin 10.1 g/dL (13.5-17.5); Mean Corpuscular HGB 37.3 pg (26.0-34.0); Mean Corpuscular HGB Conc 32.7 g/dL (31.5-36.5); Mean Corpuscular Volume 114 fL (80-100); Mean Platelet Volume 9.1 fL (9.1-12.4); Platelet Count 111 K/mm3 (150-400); RDW Coefficient Variation 14.4 % (11.7-14.2); Red Blood Cell Count 2.71 M/mm3 (4.30-5.90); White Blood Cell Count 2.11 K/mm3 (4.00-11.30)
[2019-12-16 08:46] LABS: Alanine Aminotransfer (ALT/SGP 14 U/L (12-78); Alk Phos 60 U/L (50-136); Anion Gap 5 mmol/L (6-16); Aspartate Aminotrans (AST/SGOT 13 U/L (12-37); Bilirubin, Total 0.8 mg/dL (0.1-1.0); Blood Urea Nitrogen 34 mg/dL (8-24); Bun/Creatinine Ratio 30.1 (12.0-20.0); CO2, Blood 29 mmol/L (21-32); Chloride, Blood 104 mmol/L (98-108); Creatinine, Blood 1.13 mg/dL (0.60-1.20); Glomerular Filtration Rate >60 (60-); Glucose, Blood 95 mg/dL (70-99); Potassium, Blood 4.7 mmol/L (3.5-5.5); Sodium, Blood 138 mmol/L (136-145)
[2019-12-16 08:48] LABS: BASOPHILS PERCENT MAN 0 % (0-2); EOSINOPHILS ABSOLUTE MAN 0.08 K/mm3 (0.00-0.68); EOSINOPHILS PERCENT MAN 4 % (0-6); LYMPHOCYTES ABSOLUTE MAN 1.54 K/mm3 (0.84-5.20); LYMPHOCYTES PERCENT MAN 73 % (21-46); MONOCYTES ABSOLUTE MAN 0.04 K/mm3 (0.16-1.47); MONOCYTES PERCENT MAN 2 % (4-13); NEUTROPHILS ABSOLUTE MAN 0.44 K/mm3 (1.96-9.15); SEG NEUTROPHILS PERCENT MAN 21 % (41-73); TOTAL CELLS COUNTED 100
--- NOTE | 2019-12-16 18:30 | NUR ---
SHIFT SUMMARY UNEVENTFUL SHIFT. VITALS STABLE. NO COMPLAINTS OF PAIN. NO ACUTE CHANGES TO REPORT OF AT THIS TIME.
--- NOTE | 2019-12-17 05:06 | NUR ---
SHIFT SUMMARY: 89 Y/O MALE RESTED COMFORTABLY IN BED; NO PAIN OR NAUSEA; ALERT AND ORIENTED X 3; ABLE TO FOLLOW VERY SIMPLE VERBAL COMMANDS; BED ALARM APPLIED; BED LOW POSITION WITH CALL LIGHT AT SIDE.
--- NOTE | 2019-12-17 07:47 | NUR ---
ASSUMED CARE OF PATIENT PATIENT PLEASANT, ALERT AND ORIENTED. HE DENIES ANY CONCERNS MINUS THE FACT THAT HE IS VERY COLD ALL THE TIME AND REQUESTS THE DOOR TO BE CLOSED. DOES HAS SOME WEAKNESS IN LOWER EXTREMITES NOTED UPON ASSESSMENT, BUT NOTES THIS HAS BEEN PROGRESSIVE PRIOR TO ADMISSION.
--- NOTE | 2019-12-17 18:36 | NUR ---
SHIFT SUMMARY PATIENT IS PLEASANT ALERT AND ORIENTED. NO ACUTE CONCERNS AT THIS TIME. HE IS AWAITING PLACEMENT.
--- NOTE | 2019-12-17 19:54 | NUR ---
1914 REPORT RECEIVED FROM HARJINDER THOMAS; RESTING COMFORTABLY IN BED.
--- NOTE | 2019-12-18 04:52 | NUR ---
SHIFT SUMMARY: 89 Y/O MALE RESTED COMFORTABLY ALL SHIFT; PT HAPPY AND COOPERATIVE; DENIES PAIN OR NAUSEA; PT EAGER FOR POSSIBLE MOVE TO [employer]; BED ALARM APPLIED, BED LOW POSITION WITH CALL LIGHT AT SIDE.
--- NOTE | 2019-12-18 23:47 | NUR ---
BEGINNING SHIFT SUMMARY ASSUMED CARE OF PT AT 1900. PT IS A/O X3, PT STATES HE HAS NUMBNESS IN HIS FINGERS AND TOES AFTER HIS STROKE 5YRS AGO. PT STATED THAT HE IS EXCITED TO GO TO THE PLACE THAT HIS HIS LOOKED AT FOR HIM AND HE IS READY TO LEAVE TO HOSPITAL. LUNG SOUNDS CLEAR, HEART SOUNDS REGUALR, DENIES CP/SOB AT THIS TIME. PT USES URINAL IN BED, URINE CLEAR AND YELLOW. BOWEL TONES HYPERACTIVE. CALL LIGHT IN REACH, BED IN LOWEST POSTION, WILL CONTINUE TO MONITOR.
--- NOTE | 2019-12-19 04:51 | NUR ---
END SHIFT SUMMARY NO ACUTE CHANGES NOTED T/O THE NIGHT. PT SLEPT T/O THE NIGHT EXCEPT TO CALL TO EMPTY THE URINAL. CALL LIGHT IN REACH, BED IN LOWEST POSTION, WILL CONTINUE TO MONITOR UNTIL DAYSHIFT NURSE ARRIVES.
[2019-12-19 04:54] LABS: Hematocrit 30.3 % (37.0-53.0); Mean Corpuscular HGB 37.5 pg (26.0-34.0); Mean Corpuscular Volume 114 fL (80-100); Mean Platelet Volume 9.3 fL (9.1-12.4); Platelet Count 115 K/mm3 (150-400); RDW Coefficient Variation 14.4 % (11.7-14.2); RDW Standard Deviation 59.3 fL (35.1-46.3); Red Blood Cell Count 2.67 M/mm3 (4.30-5.90); White Blood Cell Count 2.44 K/mm3 (4.00-11.30)
[2019-12-19 05:34] LABS: Anion Gap 4 mmol/L (6-16); Blood Urea Nitrogen 35 mg/dL (8-24); CO2, Blood 28 mmol/L (21-32); Calcium, Blood 8.9 mg/dL (8.5-10.1); Chloride, Blood 106 mmol/L (98-108); Creatinine, Blood 1.13 mg/dL (0.60-1.20); Glomerular Filtration Rate >60 (60-); Glucose, Blood 92 mg/dL (70-99); Potassium, Blood 4.6 mmol/L (3.5-5.5); Sodium, Blood 138 mmol/L (136-145)
[2019-12-19 06:11] LABS: BASOPHILS PERCENT MAN 0 % (0-2); EOSINOPHILS PERCENT MAN 0 % (0-6); LYMPHOCYTES % ATYPICAL MANUAL 13 % (0-0); LYMPHOCYTES ABSOLUTE MAN 2.04 K/mm3 (0.84-5.20); LYMPHOCYTES PERCENT MAN 71 % (21-46); MONOCYTES ABSOLUTE MAN 0.02 K/mm3 (0.16-1.47); MONOCYTES PERCENT MAN 1 % (4-13); NEUTROPHILS ABSOLUTE MAN 0.36 K/mm3 (1.96-9.15); SEG NEUTROPHILS PERCENT MAN 15 % (41-73); TOTAL CELLS COUNTED 100
--- NOTE | 2019-12-19 15:29 | NUR ---
SHIFT SUMMARY PT HAS BEEN A/O X 4 TODAY WITH NO C/O PAIN. PT IS VERY PLEASANT AND COOPERATIVE WITH HIS CARE. PT CONTINUES TO AWAIT PLACEMENT. HE HAS BEEN RESTING IN BED. PT USES THE URINAL AT THE BEDSIDE. HE IS ABLE TO MAKE HIS NEEDS KNOWN AND CALLS FOR HELP WHEN NEEDED.
--- NOTE | 2019-12-19 23:41 | NUR ---
BEGINNING SHIFT SUMMARY ASSUMED CARE OF PT AT 1900. PT IS A/O X4, STATES HE HAS N/T IN FINGERS AND TOES DUE TO CVA YEARS AGO. PT IS EXCITED TO LEAVE AND GO TO [facility] AND TALKS ABOUT WHAT HIS SON HAD DONE FOR HIM. HEART SOUNDS REGULAR, LUNG SOUNDS CLEAR. PT WALKED TO RESTROOM WITH 1P SBA. URINE CLEAR. CALL LIGHT IN REACH, BED IN LOWEST POSITION, WILL CONTINUE TO MONITOR.
--- NOTE | 2019-12-20 04:35 | NUR ---
END SHIFT SUMMARY NO ACUTE CHANGES NOTED T/O THE NIGHT. PT SLEPT T/O THE NIGHT EXCEPT TO WALK TO THE BATHROOM. VITAL SIGNS STABLE. CALL LIGHT IN REACH, BED IN LOWEST POSITION, WILL CONTINUE TO MONITOR UNTIL DAYSHIFT NURSE ARRIVES.
--- NOTE | 2019-12-20 15:21 | NUR ---
SHIFT SUMMARY PT IS A/O AT BASELINE WITH NO C/O PAIN. HE USES THE URINAL AT THE BEDSIDE AND IS A X 1 ASSIST TO THE TOILET WITH FWW. PT CONTINUES TO WAIT FOR PLACEMENT. HE IS PLESANT AND COOPERATIVE WITH HIS CARE. HE IS ABLE TO MAKE HIS NEEDS KNOWN AND CALLS FOR HELP WHEN NEEDED. CALL LIGHT IS IN REACH.
--- NOTE | 2019-12-21 07:29 | NUR ---
SHIFT SUMMARY A/O, ABLE TO MAKE NEEDS KNOWN. COOPERATIVE WITH CARE. CALLS AND ANSWERS QUESTIONS APPROPRIATELY. NO C/O PAIN/DISCOMFORT; HOWEVER SCHEDULED TYLENOL GIVEN. APPEARED TO REST OFF AND ON. VSS/AFEBRILE. NO ACUTE CHANGES NOTED. OVERNIGHT. BED IN LOWEST POSITON. CALL LIGHT AND BELONGINGS WITHIN REACH. CONTINUED TO MONITOR THROUGHOUT SHIFT. REPORT GIVEN TO ONCOMING RN.
--- NOTE | 2019-12-21 18:06 | NUR ---
PT PLACEMENT WAITING ON INS ISSUES, SEE CHART. NO C/O PAIN OR OTHER DISCOMFORT THIS SHIFT. MOSTLY STAYING IN BED, REFUSING TO WORK WITH THERAPIES TODAY. NO ACUTE CHANGES NOTED THIS SHIFT, WILL CONTINUE TO MONITOR AND REPORT TO ONCOMING RN
--- NOTE | 2019-12-22 03:24 | NUR ---
SHIFT SUMMARY PATIENT HAD NO ACUTE CHANGES OBSERVED. AXOX 3 AND BEDREST. PILOT POINT AND NO IV ACCESS. VSS/AFBERILE. DENIES PAIN, SOB, AND N/V. WATCHED TV THROUGH OUT THE SHIFT. USES URINAL AT BEDSIDE. SCHEDULE TYLENOL. COOPERATIVE WITH CARE. CALL LIGHT IN REACH. BED IN LOWEST POSITION. WILL CONTINUE TO MONITOR UNTIL DAY SHIFT NURSE ASSUMES CARE.
--- NOTE | 2019-12-22 19:14 | NUR ---
SHIFT SUMMARY PT HAS BEEN SLEEPING A LOT OF THE SHIFT. PT DID AMBULATE IN [place] WITH PHYSICAL THERAPY AND TOOK A SHOWER THIS EVENING. PT HAS HAD A GOOD APPETITE. NO COMPLAINTS OF PAIN OR SHORTNESS OF BREATH. THIS RN HAS ENCOURAGED PT TO SIT UP IN CHAIR AND TO TURN IN BED BUT PT DECLINES TO DO SO. EDUCATED PT ON IMPORTANCE OF GETTING BLOOD FLOW TO SKIN ON BUTTOCK. NO ACUTE CHANGES THIS SHIFT. WAITING FOR PLACEMENT. REPORT GIVEN TO IRWIN GRANDE.
--- NOTE | 2019-12-23 05:35 | NUR ---
SHIFT SUMMARY PT HAS HAD NO ACUTE CHANGES THIS SHIFT, NO COMPLAINTS OF ANY KIND, PT APPEARS TO BE SLEEPING W/CALL LIGHT IN REACH, WILL CONT TO MONITOR UNTIL REPORT GIVEN TO DAY RN.
--- NOTE | 2019-12-23 18:28 | NUR ---
SHIFT SUMMARY NO ACUTE CHANGES THIS SHIFT. PT HAS A GOOD APPETITE AND NO COMPLAINTS EXCEPT THAT HE WOULD LIKE TO BE AT [facility]. PLANS FOR PT TO DISCHARGE FRIDAY TO [facility]. PT STILL DECLINES TO SIT IN CHAIR FOR MEALS. THIS RN EDUCATED PT ON IMPORTANCE OF GETTING OUT OF BED. NO REQUESTS AT THIS TIME. CALL LIGHT IN REACH. WILL CONTINUE TO MONITOR.
--- NOTE | 2019-12-24 04:36 | NUR ---
SHIFT SUMMARY PT HAS HAD NO ACUTE CHANGES THIS SHIFT, NO COMPLAINTS OF ANY KIND, SON AT BEDSIDE FOR SEVERAL HOURS THIS SHIFT, PT SLEEPING AT THIS TIME, CALL LIGHT IN REACH, WILL CONT TO MONITOR UNTIL REPORT GIVEN TO DAY RN.
--- NOTE | 2019-12-24 17:57 | NUR ---
SHIFT SUMMARY NO ACUTE CHANGES NOTED THIS SHIFT. VITALS ARE STABLE. CALLS FOR STAFF ASSIST NEEDED. WILL CONTINUE TO MONITOR AND PROVIDE CARE NEEDED.
--- NOTE | 2019-12-25 03:01 | NUR ---
PETROLEUM ENGINEER SUMMARY PT A/O X4. PLEASANT AND COOPERATIVE. NO COMPLAINTS OF PAIN, DIZZINESS, NAUSEA. SLEPT WELL TONIGHT. USES BEDSIDE URINAL APPROPRIATELY. VSS. NO ACUTE EVENTS.
--- NOTE | 2019-12-25 16:06 | NUR ---
ALERT. ORIENTED. COOPERATIVE. USES CALL LIGHT APPROPRIATELY. UNLABORED RESPIRATIONS. USES URINAL. RESTING MOST OF SHIFT. AWAITING PLACEMENT. NO ACUTE CHANGES. WCTM.
--- NOTE | 2019-12-26 18:44 | NUR ---
AMBULATORY X ONCE IN HALLWAY W/GAIT BELT AND WALKER STEADY GAIT. NO ACUTE CHANGES. AWAITING PLACEMENT, POSSIBLY ON FRIDAY FOR [facility]LEIGH.
--- NOTE | 2019-12-27 05:20 | NUR ---
CLEAN ENERGY POLICY ANALYST SUMMARY PT A/P X4. SLEPT WELL TONIGHT. NO ACUTE CHANGES. VSS. CALL LIGHT WITHIN REACH, BED IN LOWEST POSITION. DENIES PAIN, SOB, NAUSEA. AWAITING PLACEMENT AT [facility] ON FRIDAY.
--- NOTE | 2019-12-27 07:50 | NUR ---
AM NOTE: BEDSIDE REPORT FROM HARJINDER BOWEN. ASSUMED CARE AT APPROX. 0710. PT SITTING UP IN BED. NO COMPLAINTS. LAST BM CHARTED 12/23/2019, PT REPORTS "I GO EVERY 5 DAYS OR SO" AND REFUSED ALL BOWEL CARE EXCEPT STOOL SOFTENER. ASSESSMENT IS OTHERWISE UNREMARKABLE. PT PREFERS DOOR CLOSED TO KEEP HEAT IN THE ROOM. BED ALARM IS IN PLACE PER POLICY FOR GREEN FALL SCORE OF 65. CALL LIGHT IN REACH.
--- NOTE | 2019-12-27 17:59 | NUR ---
SHIFT SUMMARY: NO ACUTE EVENTS TO REPORT. PT EATING AND DRINKING WELL. AWAITING PLACEMENT AT [facility]. EAGER TO DISCHARGE. STILL HAS NOT HAD BM, CONTINUES TO REFUSE FURTHER BOWEL CARE. WATCHING TV. BED IN LOW POSITION, ALARM FOR SAFETY, CALL LIGHT IN REACH.
--- NOTE | 2019-12-28 06:22 | NUR ---
Rn summary: Patient is alert and Oriented. Pt is very delightful and hopeful to be discharged soon. Pt is physically stable. He does have continued weakness tigre arms with numbness in his hands. Pt is able to use the urinal independantly. Pt does have chronic back pain for which he gets tylenol with good relief. Pt reports he rested well. Call light in reach and pt uses it apropriately. Will continue to monitor.
--- NOTE | 2019-12-28 14:15 | NUR ---
Patient gave permission for care at 1400 on 12/28/2019.
--- NOTE | 2019-12-28 14:17 | NUR ---
Patient gave permission for care at 1400 on 12/28/2019.
--- NOTE | 2019-12-29 06:31 | NUR ---
SUMMARY: PT A/OX4, CALLS APPROPRIATELY AND SPECIFIES NEEDS. HE USES URINAL INDEPENDENTLY AND IS SBA OOB. PT REFUSED BOWEL MEDS D/T HAVING HAD BM ON DAY SHIFT. HE DENIED ALL PAIN, COMPLAINTS AND CONCERNS THIS SHIFT. PT IS POSSIBLE D/C TO [facility] W/DC PLANNING ASSISTING PT'S SON W/ARRANGEMENTS. NO ACUTE CHANGES, VSS/AFEBRILE. WCTM AND REPORT TO DAY RN.
--- NOTE | 2019-12-29 14:00 | NUR ---
12/28/19 1800 SHIRT SUMMARY pt has bowel movement had not gone for 6 days , he says that is normal for him.. pt voiced that he was upset with his son for not signing the papers so he can get out of here. no c/o pain or his comfort .
--- NOTE | 2019-12-29 16:55 | NUR ---
SHIFT SUMMARY- PT A/OX3, SBA UP IN ROOM WITH 4WW. PT DENIES ANY COMPLAINTS T/O THE DAY. LS CLEAR, ON RA. PT AWAITING MEDICAID PROCESS AND DISCHARGE TO [facility]. NO OTHER ACUTE CHANGES THIS SHIFT.
--- NOTE | 2019-12-30 05:41 | NUR ---
NOC SHIFT SUMMARY PT IS PLEASANT AND COOPERATIVE WITH CARE. AAOX4, RESP EVEN AND UNLABORED. HAS SPENT THE NIGHT IN BED SLEEPING WITH NO COMPLAINTS. VSS. PRESENLTY APPEARS TO BE SLEEPING RESTFULLY AND IN NO ACUTE DISTRESS. WILL CONTINUE TO MONITOR.
--- NOTE | 2019-12-30 18:12 | NUR ---
SHIFT SUMMARY PT A/O THROUGHOUT THIS SHIFT. PT PLEASANT AND COOPERATIVE WITH CARE. PT HAS BEEN IN BED MOST OF THIS SHIFT. PT DENIES PAIN OR DISCOMFORT. PT CURRENLTY SITTING UP IN BED EATING DINNER.
--- NOTE | 2019-12-31 05:40 | NUR ---
NOC SHIFT SUMMARY PT HAS BEEN AAOX4 THIS SHIFT. HE HAS SPENT THE EVENING AND NIGHT IN BED. NO COMPLAINTS OF PAIN OR DISCOMFORT. HAS LARGELY SLEPT THROUGH THE NIGHT. AWAKENS EASILY TO VOICE. APPEARS TO BE IN NO ACUTE DISTRESS. DENIES ANY NEEDS AT THIS TIME. WILL CONTINUE TO MONITOR.
--- NOTE | 2019-12-31 19:40 | NUR ---
SHIFT SUMMARY: NO ACUTE CHANGES TO REPORT THIS SHIFT. PT A&O; CALM AND COOPERATIVE WITH CARE. PT UP WITH SBA c 4WW. MEDICATED FOR PAIN PER EMAR. AWAITING PLACEMENT. REPORT GIVEN TO ONCOMING RN.
--- NOTE | 2020-01-01 17:17 | NUR ---
SHIFT SUMMARY- PT IS A/O, PLESANT AND COOPERATIVE. PT USES WALKER TO AMBULATE TO THE RESTROOM. HE IS EATING AND DRINKING WELL.
--- NOTE | 2020-01-02 04:35 | NUR ---
SUMMARY: A/OX4, CALLS APPROPRIATELY AND PLEASANT/COOPERATIVE W/CARE. HE USES URINAL INDEPENDENTLY IN BED AND IS SBA W/FWW DURING AMBULATION. HE DENIES PAIN AND ALL OTHER COMPLAINTS ASIDE FROM CHRONIC BACK PAIN WHICH IS CONTROLLED WELL W/SCHEDULED TYLENOL. PT CONT'S TO REFUSE BOWEL MEDS D/T HAVING THEM "REGULARLY WITHOUT". HE SLEPT MOST OF NOCTE AND IS AWAITING PLACEMENT. VSS/AFEBRILE. WCTM AND REPORT TO DAY RN.
--- NOTE | 2020-01-02 17:56 | NUR ---
SHIFT SUMMARY- PT A/O PLEASANT AND COOPERATIVE. HE HAD A BM YESTERDAY, REFUSING BOWEL CARE. PT IS EATING AND DRINKING WELL. HE SLEPT FOR MUCH OF THIS SHIFT.
--- NOTE | 2020-01-03 04:48 | NUR ---
SHIFT SUMMARY: PT IS ALERT AND ORIENTED. PT IS CALM AND COOPERATIVE WITH CARE. PT CALLS APPROPRIATELY. PT IS A ONE PERSON ASSIST, INDEPENDENT WITH THE URINAL. PT DENIES PAIN, NAUSEA, VOMITING, AND SOB. PT SLEPT MUCH OF THE NIGHT WHEN NOT DISTURBED. POSSIBLE DISCHARGE TODAY. NO ACUTE CHANGES OR COMPLICATIONS THIS SHIFT. BED IN LOW POSITION, CALL LIGHT WITHIN REACH. WILL CONTINUE TO MONITOR.
[2020-01-03 04:53] LABS: BASOPHILS PERCENT AUTO 0 % (0-2); EOSINOPHILS ABSOLUTE AUTO 0.05 K/mm3 (0.00-0.68); EOSINOPHILS PERCENT AUTO 2 % (0-6); Hematocrit 29.1 % (37.0-53.0); Hemoglobin 9.7 g/dL (13.5-17.5); Mean Corpuscular HGB 38.5 pg (26.0-34.0); Mean Corpuscular HGB Conc 33.3 g/dL (31.5-36.5); Mean Corpuscular Volume 116 fL (80-100); Mean Platelet Volume 9.5 fL (9.1-12.4); Platelet Count 87 K/mm3 (150-400); RDW Coefficient Variation 14.6 % (11.7-14.2); RDW Standard Deviation 61.6 fL (35.1-46.3); Red Blood Cell Count 2.52 M/mm3 (4.30-5.90); White Blood Cell Count 2.09 K/mm3 (4.00-11.30)
[2020-01-03 04:59] LABS: IMMATURE GRAN PERCENT AUTO 0 % (0-1); LYMPHOCYTES ABSOLUTE AUTO 1.78 K/mm3 (0.84-5.20); LYMPHOCYTES PERCENT AUTO 85 % (21-46); MONOCYTES ABSOLUTE AUTO 0.04 K/mm3 (0.16-1.47); MONOCYTES PERCENT AUTO 2 % (4-13); NEUTROPHILS ABSOLUTE AUTO 0.22 K/mm3 (1.96-9.15); NEUTROPHILS PERCENT AUTO 11 % (41-73)
[2020-01-03 05:17] LABS: Bun/Creatinine Ratio 24.2 (12.0-20.0); Calcium, Blood 8.7 mg/dL (8.5-10.1); Creatinine, Blood 1.24 mg/dL (0.60-1.20); Potassium, Blood 4.1 mmol/L (3.5-5.5)
[2020-01-03 05:20] LABS: Thyroid Stimulating Hormone 2.11 uIU/mL (0.360-4.800)
[2020-01-03] MEDS ORDERED: ACET325 PO (11:18)
[2020-01-03] MEDS ORDERED: Support-5001 EACH PO (11:20)
[2020-01-03] MEDS ORDERED: FAMO20 PO (11:21)
[2020-01-03] MEDS ORDERED: MIRALAX17 GM PO (11:22)
[2020-01-03] MEDS ORDERED: ZINC220 PO (11:22)
[2020-01-03] MEDS ORDERED: ONDA4 PO (11:22)
[2020-01-03] MEDS ORDERED: XARELTO15 MG PO (11:22)
--- NOTE | 2020-01-03 12:20 | NUR ---
I OFFERED FOR Pt TO SIT UP IN THE CHAIR FOR BOTH MEALS HE ADMITTELY RWEFUSED,AND STATED HE IS TO COLD TO GET UP.
--- NOTE | 2020-01-03 17:17 | NUR ---
ALERT. ORIENTED. COOPERATIVE. USES URINAL. USES CALL LIGHT APPROPRIATELY. DENIES ANY ; PAIN, NAUSEA, OR SOB. UNLABORED RESPIRATIONS. AWAITING PLACEMENT AT [facility]
--- NOTE | 2020-01-04 05:13 | NUR ---
SHIFT SUMMARY: PT IS ALERT AND ORIENTED. PT IS CALM AND COOPERATIVE WITH CARE. PT CALLS APPROPRIATELY. PT IS A ONE PERSON ASSIST, INDEPENDENT WITH THE URINAL. PT DENIES PAIN, NAUSEA, VOMITING, AND SOB. NO ACUTE CHANGES OR COMPLICATIONS OVERNIGHT. AWAITING PLACEMENT. BED IN LOW POSITION, CALL LIGHT WITHIN REACH. WILL REPORT TO DAY NURSE.
--- NOTE | 2020-01-04 18:37 | NUR ---
ALERT. ORIENTED. DENIES ANY ;PAIN, SOB OR N/V. AWAITING PLACEMENT TO [facility]. NO ACUTE CHANGES. WCTM
--- NOTE | 2020-01-05 04:44 | NUR ---
COMIC ARTIST SUMMARY NO ACUTE CHANGES THIS SHIFT. PT AAOX4 AND PLEASANT. CALLS APPROPRIATELY FOR ASSISTANCE. HAS CHRONIC PAIN THAT PT REPORTS IS WELL MANAGED WITH SCHEDULED TYLENOL. PT DENIES SOB, N/V. USES URINAL AT BEDSIDE. VSS, WILL CONTINUE TO MONITOR.
--- NOTE | 2020-01-05 17:51 | NUR ---
ALERT. ORIENTED. AMBULATORY IN HALLWAY WITH ONE PERSON STANDBY W/WALKER AND GAIT BELT. STEADY GAIT. PLEASANT. COOPERATIVE. USES URINAL. UNLABORED RESPIRATIONS. NO ACUTE CHANGES. WCTM
--- NOTE | 2020-01-06 05:00 | NUR ---
TRADE EMBALMER SUMMARY NO ACUTE CHANGES. PT AAOX4 AND PLEASANT. CALLS APPROPRIATELY. HAS SLEPT THROUGH THE NIGHT WITHOUT COMPLAINT. VSS, WILL CONTINUE TO MONITOR.
--- NOTE | 2020-01-06 12:57 | NUR ---
A+O WANTS HEAT TO STAY IN ROOM SO KEEPS DOOR CLOSED, REPORT RECEIVED FROM DAY NURSE, SALINE LOCKED, BED IN LOW POSITION, RM AIR, MEDICATED AND TREATED PRESCRIBED, THERAPY IN TO VISIT, WILL CONTINUE TO MONITOR AND TREAT APPROPRIATE, AWAITING PLACEMENT
--- NOTE | 2020-01-06 19:13 | NUR ---
no acute changes noted during shift, saline locked, bed in low position, call light in reach, room air, ate all meals, took medication and participated in therapy, waiting on referral to snf/care
--- NOTE | 2020-01-07 05:23 | NUR ---
GEM TECHNICIAN SUMMARY NO ACUTE CHANGES. PT AAOX4, URINAL AT BEDSIDE. HAS SLEPT THROUGH MOST OF THE NIGHT. DENIES PAIN, SOB, N/V. VSS, WILL CONTINUE TO MONITOR.
--- NOTE | 2020-01-07 07:20 | NUR ---
report received from day shift nurse, no major changes noted over night, a+o, nonproductive cough, ls clear, PERRL, bt+4q soft nontender, pulses strong in all four limbs all weak, bed in low position, call light in reach, rm air, no IV access, some medication taken some refused, discussed results of each refused medication
--- NOTE | 2020-01-07 19:44 | NUR ---
A+O NO SIGNIFICANT CHANGES NOTED DURING SHIFT, UP WITH PT WALKING IN HALLS, BED IN LOW POSITION, CALL LIGHT IN REACH, NO IV, RM AIR
--- NOTE | 2020-01-08 04:43 | NUR ---
SHIFT SUMMARY A/O, ABLE TO MAKE NEEDS KNOWN. COOPERATIVE WITH CARE. ANSWERS QUESTIONS APPROPRIATELY. NO C/O PAIN/DISCOMFORT. APPEARED TO REST MUCH OF SHIFT. NO ACUTE CHANGES NOTED OVERNIGHT. BED IN LOWEST POSITION. CALL LIGHT AND BELONGINGS WITHIN REACH. WCTM. REPORT TO ONCOMING RN. CONTINUES TO AWAIT PLACEMENT.
--- NOTE | 2020-01-08 18:52 | NUR ---
no acute changes to pT
--- NOTE | 2020-01-09 04:47 | NUR ---
SHIFT SUMMARY A/O, ABLE TO MAKE NEEDS KNOWN. COOPERATIVE WITH CARE. ANSWERS QUESTIONS APPROPRIATELY. NO C/O PAIN/DISCOMFORT. APPEARED TO REST OFF AND ON T/O SHIFT. VSS/AFEBRILE. AWAITING PLACEMENT. NO ACUTE CHANGES NOTED OVERNIGHT. BED IN LOWEST POSITION. CALL LIGHT AND BELONGINGS WITHIN REACH. WCTM. REPORT TO ONCOMING RN.
--- NOTE | 2020-01-09 18:36 | NUR ---
NO ACUTE CHANGES TO PT. HE WAS ABLE TO WALK THE HALLS WITH STAFF THIS SHIFT. HE IS COMPLIANT AND FRIENDLY WITH STAFF. CALL LIGHT WITH IN REACH.
--- NOTE | 2020-01-10 05:05 | NUR ---
SHIFT SUMMARY A/O, ABLE TO MAKE NEEDS KNOWN. COOPERATIVE WITH CARE. CALLS AND ANSWERS QUESTIONS APPROPRIATLEY. NO C/O PAIN/DISCOMFORT. APPEARED TO REST MUCH OF SHIFT. VSS/AFEBRILE. NO ACUTE CHANGES NOTED. STILL AWAITING PLACEMENT. BED IN LOWEST POSITION. CALL LIGHT AND BELONGINGS WITHIN REACH. WCTM. REPORT TO ONCOMING RN.
--- NOTE | 2020-01-10 12:52 | NUR ---
HE HAS HAD NO COMPLAINTS TODAY. HE IS WAITING FOR PLACEMENT. WINDOW DISPLAY DESIGNER SAYS [facility] WILL COME FOR AN INTERVIEW TODAY OR TOMORROW.
--- NOTE | 2020-01-10 18:15 | NUR ---
HE CONTINUIES TO HAVE NO COMPLAINTS. NO ONE CAME TO INTERVIEW HIM TODAY. HE EATS WELL AND VOIDS PER URINAL AT THE BEDSIDE. WAITING FOR PLACEMENT.
--- NOTE | 2020-01-11 05:37 | NUR ---
SHIFT SUMMARY: AL HAS HAD A GOOD NIGHT. VS HAVE REMAINED STABLE. PAIN HAS REMAINED WITH IN TOLERABLE LEVELS. HE TOOK HIS MEDS WITH NO PROBLEMS. SLEPT MOST OF THE SHIFT, ONLY AWAKING FOR VS AND ROUNDINGS. NO ACUTE CHANGES OCCURRED. WILL REPORT TO DAY SHIFT.
--- NOTE | 2020-01-11 12:47 | NUR ---
HE HAS EATEN WELL AND VOIDED WELL. HE SAYS HE DOESN'T EXPECT ANOTHER BM FOR A FEW MORE DAYS. WILL OFFER PRN SENNA. HE NEVER TAKES THE MIRALAX. "I CAN'T" SAYS IT MAKES HIM SICK. HE HAS NO GI COMPLAINTS. NO COMPLAINTS BUT WHEN I ASKED HIM ABOUT PAIN HE MENTIONED HIS R LOWER LEG. THYLNOL WAS EFFECTIVE. WAITING FOR PLACEMENT.
--- NOTE | 2020-01-11 18:47 | NUR ---
WAITING FOR PLACEMENT. RECEIVED TYLENOL X2 FOR R LEG PAIN. NO REDNESS OR SWELLING. TYLENOL EFFECTIVE. HE DID NOT WALK WITH PT TODAY BUT WOULD WALK WITH A MALE NURSE OR K 9 HANDLER/ DEPUTY HE SAYS.
--- NOTE | 2020-01-11 20:44 | NUR ---
2043- AL WAS WATCHING TV IN BED, STATES NO CHANGES TODAY. DENIES ANY PAIN IN HIS LEG AT THIS TIME. RLE SWEATBAND DRUMMER TO THE TOUCH. NO SWELLING NOTED. LUNG SOUNDS CLEAR, HR REGULAR, NO CHEST PAIN OR PALPITAITONS. NO SOB. ADMINISTERED MEDS PER EMAR. EMPTIED URINAL. CALL LIGHT IN REACH.
[2020-01-12 05:51] LABS: Hematocrit 29.1 % (37.0-53.0); Hemoglobin 9.8 g/dL (13.5-17.5); Mean Corpuscular HGB 38.7 pg (26.0-34.0); Mean Corpuscular HGB Conc 33.7 g/dL (31.5-36.5); Mean Corpuscular Volume 115 fL (80-100); Mean Platelet Volume 9.7 fL (9.1-12.4); Platelet Count 90 K/mm3 (150-400); RDW Coefficient Variation 14.9 % (11.7-14.2); RDW Standard Deviation 62.4 fL (35.1-46.3); Red Blood Cell Count 2.53 M/mm3 (4.30-5.90); White Blood Cell Count 1.85 K/mm3 (4.00-11.30)
[2020-01-12 06:07] LABS: Albumin, Blood 2.9 g/dL (3.4-5.0); Anion Gap 4 mmol/L (6-16); Blood Urea Nitrogen 26 mg/dL (8-24); Bun/Creatinine Ratio 22.6 (12.0-20.0); CO2, Blood 29 mmol/L (21-32); Calcium, Blood 8.9 mg/dL (8.5-10.1); Chloride, Blood 105 mmol/L (98-108); Creatinine, Blood 1.15 mg/dL (0.60-1.20); Glomerular Filtration Rate >60 (60-); Glucose, Blood 89 mg/dL (70-99); Phosphorus, Blood 2.9 mg/dL (2.5-4.9); Potassium, Blood 4.3 mmol/L (3.5-5.5); Sodium, Blood 138 mmol/L (136-145)
--- NOTE | 2020-01-12 06:19 | NUR ---
SHIFT SUMMARY: AL HAS HAD AN UNEVENTFUL NIGHT. HIS VITALS HAVE REMAINED STABLE. PAIN HAS REMAINED IN CONTROL. HE HAS USED THE URINAL ALL NIGHT. SLEPT THROUGHOUT THE SHIFT. NO ACUTE CHANGES TO REPORT.
--- NOTE | 2020-01-12 21:42 | NUR ---
AL HAS BEEN WATCHING TV PATIENTLY WITH NO COMPLAINTS OR NEEDS NOTED. DENIES ANY ACUTE CHANGES OR CONCERN. VS ALL STABLE. WILL CONTINUE TO MONITOR.
--- NOTE | 2020-01-13 05:43 | NUR ---
SHIFT SUMMARY: AL HAD ANOTHER GOOD NIGHT WITH SLEEPING THROUGHOUT THE SHIFT. VS HAVE REMAINED STABLE. VOIDING IN THE URINAL. USING CALL LIGHT APPROPRIATLY. DENYING ANY NEEEDS. NO ACUTE CHANGES. STATES SON MADE PLANS FOR HIM TO GO TO [facility]. THEY ARE MAKING FINAL ARRANGEMENTS, SENIOR INTEGRATION DEVELOPER WORKING WITH HIM ON IT.
--- NOTE | 2020-01-13 18:29 | NUR ---
SHIFT SUMMARY PATIENT IS ACCEPTED TO [facility] WAITING ON SON TO ARRANGE APARTMENT. PATIENT TAKES PILLS WHOLE IN WATER. UP TO SHOWER TODAY.
--- NOTE | 2020-01-13 22:06 | NUR ---
01/13/202144 PT VERY UPSET WITH RN I TOLD HIM I NEEDED TO SEE HIS BACK AND BOTTOM " PART OF MY JOB". SO WHEN MARINE ELECTRICIAN HELPER AND RN TURNED HIM TO LEFT SIDE TO ASSESS HIS SKIN HE BECAME VERY ANGRY WITH RN. "I HAVE NEVER HAD TO TURN IN 5 WEEKS!" REASSURED HIM AND PT LEFT ON HIS BACK PER HIS REQUEST. BLANKETS TO KEEP WARM AND CALL AMAYA WITHIN REACH.
--- NOTE | 2020-01-14 00:03 | NUR ---
01/13/20 2330 CNAS HELPED HIM WITH A SHOWER PER HIS REQUEST. PT WAS SHAVED AND RECEIVED ORAL CARE BY DRUG DEPARTMENT WORKER. HELPED BACK TO BED BY DRUG DEPARTMENT WORKER. CALL AMAYA WITHIN REACH.
--- NOTE | 2020-01-14 07:32 | NUR ---
01/14/20 0545 AWAKENED FOR AM MEDS BY CHILD CARE TEACHERAGNES. DENIED ANY S/S. VITALS REMAIN STABLE. UNEVENTFUL NIGHT.
--- NOTE | 2020-01-14 18:16 | NUR ---
SHIFT SUMMARY PATIENT SON IS IN THE ROOM AT THIS TIME. [facility] ROOM WILL BE SET UP TOMORROW AFTERNOON. PATIENT COOPERATIVE WITH ALL CARES. NO ACUTE ISSUES NOTED. ABLE TO MAKE HIS NEEDS KNOWN.
--- NOTE | 2020-01-15 07:37 | NUR ---
END OF SHIFT: PT WAS PLEASANT AND COOPERATIVE TONIGHT, NO IRRITABLE BEHAVIOR NOTED. HE USED HIS URINAL AND CALLED APPROPRIATELY. HE LIKES HIS DOEER KEPT CLOSED TO KEEP THE WARMTH IN. NO ACUTE CHANGES OCCURED.
[2020-01-15] MEDS ORDERED: CYAN500 PO (09:35)
--- NOTE | 2020-01-15 16:51 | NUR ---
PATIENT DC'D TO [facility] WITH SON KAREN. VOUCHER GIVEN FOR 30 DAY SUPPLY OF XARELTO. RX MEDICATIONS FAXED TO [facility]. PATIENT WILL HAVE [facility]. DC INSTRUCTIONS AND EDUCATION DISCUSSED WITH PATIENT AND COPY PROVIDED. PATIENT DENIES ANY FURTHER QUESTIONS OR CONCERNS.
== END 2020-01-15 16:47 | disposition home or self-care (01) | DRG 69 ==
LOC: ER 15:42 → MEDS 21:04
PROVIDERS: Emergency Medicine; Family Medicine; Internal Medicine; Physician Assistant; ADMIT Internal Medicine
DX: G45.9 Transient cerebral ischemic attack, unspecified (principal); D61.818 Other pancytopenia; J96.11 Chronic respiratory failure with hypoxia; E78.5 Hyperlipidemia, unspecified; E03.9 Hypothyroidism, unspecified; Z79.82 Long term (current) use of aspirin; Z87.891 Personal history of nicotine dependence; Z66 Do not resuscitate; N18.3 Chronic kidney disease, stage 3 (moderate); I72.4 Aneurysm of artery of lower extremity; D75.89 Other specified diseases of blood and blood-forming organs; K59.09 Other constipation; W18.30XA Fall on same level, unspecified, initial encounter; Y93.9 Activity, unspecified; Y92.9 Unspecified place or not applicable; E53.8 Deficiency of other specified B group vitamins; G31.84 Mild cognitive impairment of uncertain or unknown etiology; I12.9 Hypertensive chronic kidney disease with stage 1 through stage 4 chronic kidney disease, or unspecified chronic kidney disease
CPT/HCPCS: 36415; 70450; 80048; 80053; 80061; 80069; 80074; 81001; 82607; 82746; 83036; 84443; 85025; 85027; 85610; 92523; 93005; 93010; 93306; 93880; 93926; 93971; 96360; 96361; 96372; 97110; 97116; 97163; 97166; 97530; 97535; 99285-25; A9270; G0378; J1644; J3420; J7030

== ENCOUNTER 2020-01-18 14:17 | Emergency (ER) | payer MEDICARE ==
[~2020-01-18] VITALS: Ht 170.2 cm; Wt 79.4 kg
[~2020-01-18 14:17] MED LIST changes: +ACET325 PO; +CYAN500 PO; +FAMO20 PO; +OCUVITE ADULT1 EAC1 PO; +ONDA4 PO; +Support-5001 EACH PO; +XARELTO15 MG PO; +ZINC220 PO
[2020-01-18 14:42] LABS: Source, Urine Clean Catch
[2020-01-18 14:45] LABS: Bilirubin, Urine Neg (Neg); Blood, Urine 1+ (Neg); Glucose Qualitative, Urine Neg (Neg); Ketones, Urine Neg (Neg); Leukocyte Esterase, Urine Neg (Neg); Nitrite, Urine Neg (Neg); Protein, Urine 1+ (Neg); Specific Gravity, Urine 1.015 (1.003-1.022); Urobilinogen, Urine NORM (Normal); pH, Urine 6.5 (5.0-8.0)
[2020-01-18 14:48] LABS: BASOPHILS ABSOLUTE AUTO 0.01 K/mm3 (0.00-0.23); BASOPHILS PERCENT AUTO 1 % (0-2); EOSINOPHILS ABSOLUTE AUTO 0.01 K/mm3 (0.00-0.68); EOSINOPHILS PERCENT AUTO 1 % (0-6); Hemoglobin 9.5 g/dL (13.5-17.5); Mean Corpuscular HGB 38.6 pg (26.0-34.0); Mean Corpuscular HGB Conc 32.8 g/dL (31.5-36.5); Mean Platelet Volume 9.4 fL (9.1-12.4); Platelet Count 99 K/mm3 (150-400); RDW Coefficient Variation 15.3 % (11.7-14.2); RDW Standard Deviation 65.3 fL (35.1-46.3); Red Blood Cell Count 2.46 M/mm3 (4.30-5.90); White Blood Cell Count 1.31 K/mm3 (4.00-11.30)
[2020-01-18 14:53] LABS: IMMATURE GRAN PERCENT AUTO 0 % (0-1); LYMPHOCYTES ABSOLUTE AUTO 1.09 K/mm3 (0.84-5.20); LYMPHOCYTES PERCENT AUTO 83 % (21-46); MONOCYTES ABSOLUTE AUTO 0.02 K/mm3 (0.16-1.47); MONOCYTES PERCENT AUTO 2 % (4-13); Mean Corpuscular Volume 118 fL (80-100); NEUTROPHILS ABSOLUTE AUTO 0.18 K/mm3 (1.96-9.15); NEUTROPHILS PERCENT AUTO 14 % (41-73)
[2020-01-18 15:01] LABS: Appearance, Urine Clear (Clear); Color, Urine Yellow (P-Yellow)
[2020-01-18 15:02] LABS: Bacteria Rare /hpf; Squamous Epithelial Cells Few /hpf (Few); White Blood Cells, Urine 0-2 /hpf (0-5)
[2020-01-18 15:06] LABS: Albumin, Blood 3.2 g/dL (3.4-5.0); Albumin/Globulin Ratio 1.1 (0.8-1.8); Bilirubin, Total 0.7 mg/dL (0.1-1.0); Bun/Creatinine Ratio 13.7 (12.0-20.0); Calcium, Blood 8.9 mg/dL (8.5-10.1); Creatinine, Blood 1.46 mg/dL (0.60-1.20); Potassium, Blood 4.2 mmol/L (3.5-5.5); Total Protein, Blood 6.2 g/dL (6.4-8.2)
[2020-01-18 15:14] LABS: Magnesium, Blood 2.2 mg/dL (1.6-2.4)
== END 2020-01-18 18:33 | disposition home or self-care (01) ==
LOC: ER 14:17
PROVIDERS: Emergency Medicine
DX: D61.818 Other pancytopenia (principal); R11.2 Nausea with vomiting, unspecified; R19.7 Diarrhea, unspecified; E78.5 Hyperlipidemia, unspecified; E03.9 Hypothyroidism, unspecified; N18.9 Chronic kidney disease, unspecified; Z87.891 Personal history of nicotine dependence
CPT/HCPCS: 70450; 71045; 80053; 81001; 82550; 83735; 85025; 93005; 93010; 96360; 96361; 99285-25; J7030